=== PATIENT | female | born 1950 | race Native Hawaiian/Other Pacific Islander ===

== ENCOUNTER 2018-07-26 09:07 | Outpatient (CLI) | payer OTHER ==
[~2018-07-26 09:07] MED LIST: CHROMIUM PIC PO; FLUOXETINE10 M2 PO; METOCLOPRAM5 MG PO; TENORETIC50 MG PO; ZANTAC300 MG PO; [UNRECOGNIZED DRUG - OTHER] XX
[2018-07-26 09:29] LABS: PLATELET COUNT 324 K/uL (152-353)
[2018-07-26 09:50] LABS: POTASSIUM 3.2 mmol/L (3.6-5.2)
== END 2018-07-26 19:15 | disposition home or self-care (01) ==
LOC: LABW 09:07
PROVIDERS: Nurse Practitioner Family
DX: I10 Essential (primary) hypertension (principal); F32.89 Other specified depressive episodes; F41.9 Anxiety disorder, unspecified; Z79.899 Other long term (current) drug therapy; Z13.220 Encounter for screening for lipoid disorders
CPT/HCPCS: 36415; 80053; 80061; 84443; 85027

== ENCOUNTER → 2018-10-31 19:38 | Outpatient (CLI) | payer OTHER | END | disposition home or self-care (01) | LOC: AMB 19:38 | DX: I46.9 Cardiac arrest, cause unspecified (principal) ==